=== PATIENT | male | born 1990 | race Caucasian/White ===

== ENCOUNTER 2021-03-16 02:37 | Emergency (ER) | payer MEDICAID, SELFPAY ==
[2021-03-16 02:37] VITALS: BP 134/62; PULSE 110; RESP 18; TEMP 36.4; O2SAT 98; BMI 30.9
--- NOTE | 2021-03-16 02:52 | EX.ED.DYSGE1 ---
HPI History of Present Illness Chief Complaint: Cellulitis Informant: patient Narrative Narrative: 30-year-old male presents with a left finger infection. 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 He went to urgent care through [facility] today and was prescribed Keflex 500 mg 4 times a day for 7 days. He states that he feels throbbing and pain in the finger. He states that the swelling seems worse than it was earlier today. He notes that he has had these types of infections before that he has been able to treat himself. He works on a lot of farms. He does note that they did do an x-ray at urgent care and did not see any foreign body or osseous infection. Tetanus up-to-date PFSH PFSH Medical History no medical history Home Medications oxycodone-acetaminophen 1 tab PO Q6H PRN PRN 3 Days #12 tablet 03/16/21 [Rx Last Taken Unknown] sulfamethoxazole-trimethoprim 1 tab PO BID #14 tablet 03/16/21 [Rx Last Taken Unknown] Family History no significant family his Surgical History no surgical history Social History (Updated 03/16/21 @ 02:[address] Solomon Cole, DO) current gender identity: male Smoking Status: Current every day smoker tobacco type: cigarettes ROS ROS ED Constitutional Constitutional ED: Denies chills or weight loss Eyes Eyes: Denies change in vision or diplopia ENT ENT ED: Denies ear pain, rhinorrhea or sore throat Cardiovascular Cardiovascular: Denies chest pain, orthopnea, palpitations or racing heartbeat Respiratory/Chest Respiratory/Chest: Denies cough, dyspnea or orthopnea Gastrointestinal Gastrointestinal: Denies abdominal pain, diarrhea, nausea or vomiting Genitourinary Genitourinary ED: Denies dysuria, hematuria or urinary frequency Musculoskeletal Musculoskeletal: Reports other Details: See history of present illness ; Denies arthralgias or myalgias Integumentary Reports rash; Denies abscess Neurologic Neurologic: Denies headache(s) or weakness Psychiatric Psychiatric: Denies anxiety, depression, suicidal ideation or suicidal thoughts Endocrine Endocrinology: Denies polydipsia, polyphagia or polyuria Allergic/Immunologic Allergic/Immunologic ED: Denies mouth swelling, tongue swelling or urticaria EXAM Physical Exam Const Vital Signs: 03/16/21 02:37 Temperature 97.5 F L Temperature Source Temporal Pulse Rate 110 H Respiratory Rate 18 Blood Pressure 134/62 H Blood Pressure Mean 86 Pulse Ox 98 Positive well nourished and well developed General Appearance ED: well developed HEENT Reports normocephalic, head/scalp atraumatic, TM's clear and moist mucous membranes Negative for trauma Tympanic Membrane ED: Yes TM's clear Eyes PERRL and EOMs intact bilaterally Neck no lymphadenopathy, supple and no JVD Resp normal respiratory effort and clear to auscultation bilaterally Cardio regular rate, regular rhythm and no murmurs GI normal to inspection, nondistended, normoactive bowel sounds and non-tender Palpation: soft Back/Spine no CVA tenderness and normal ROM Extremity Extremity Narrative: Medial aspect of the left middle finger demonstrates an area of swelling and erythema and skin hypertrophy with serosanguineous drainage. There does not appear to be any lymphangitic streaking. He is able to flex and extend. There is no evidence of a felon. No crepitance or fluctuance noted General Extremety ED: Negative for edema General Extremity: Negative for edema Neuro oriented x3 and CN's II-XII intact bilaterally Sensorium / Orientation: alert Motor Exam: strength 5/5 throughout Psych mental status grossly normal Mood & Affect: Negative for depressed or tearful Skin skin turgor normal General Skin Exam: elasticity normal MDM MDM MDM Narrative Medical decision making narrative: Patient received pain medication I will also add in Bactrim to his Keflex. Wound care discussed with patient. Return if worsening or concerns Discharge Plan Triage Chief Complaint: Cellulitis ED Provider: Solomon Cole Dx/Rx/DC Orders Clinical Impression: Cellulitis of finger of left hand Instructions: ED Cellulitis Prescriptions: New sulfamethoxazole-trimethoprim [sulfamethoxazole-trimethoprim] 1 TABLET tablet 1 tab PO BID Qty: 14 RF: 0 oxycodone-acetaminophen [oxycodone-acetaminophen] 1 TABLET tablet 1 tab PO Q6H PRN PRN (Reason: Pain) 3 Days Qty: 12 RF: 0 Primary Care Provider: Care Physician,No Primary Referrals: Harjinder Montes MD [NON-STAFF] - Amira Lackey MD [STAFF PHYSICIAN] - 1 Week if not improving Disposition Disposition: Home, Self Care
[2021-03-16] MEDS: oxyCODONE 5 MG Tablet 10 MG PO (03:00)
[2021-03-16] MEDS: Smz/Tmp Ds Tablet 1 TABLET PO (03:00)
== END 2021-03-16 03:03 | disposition home or self-care (01) ==
LOC: ED 02:58
PROVIDERS: Emergency Provider Emergency Medicine
DX: L03.012 Cellulitis of left finger (principal); F17.210 Nicotine dependence, cigarettes, uncomplicated
CPT/HCPCS: 99283

== ENCOUNTER 2021-08-29 10:51 | Emergency (ER) | payer MEDICAID, SELFPAY ==
[2021-08-29 10:53] VITALS: BP 143/85; PULSE 103; RESP 17; TEMP 37.2; O2SAT 100; BMI 34.6
--- NOTE | 2021-08-29 11:34 | EDS_ITS ---
HPI History of Present Illness Chief Complaint: Nausea/Vomiting Informant: patient Onset/Context/Timing Onset: Days (3) Context: Sudden Onset Timing: Continuous Quality: Aching Location: Head Worsened by: Light Relieved by: Ibuprofen Narrative Narrative: Patient presents with nausea, vomiting, diarrhea for the past 3 days. Patient also admits to a headache. Patient states that his headache is diffuse across his head. Patient states it is worse with light. Patient states it is better with ibuprofen. Patient states symptoms have been constant for the past 3 days. Patient took a home COVID test today which was positive. Patient admits to a fever of 102 and some sweats. Patient also admits to some blurry vision and sore throat. [facility] Medical History (Updated 08/29/21 @ 15:[address] Alejandro Morgan DO) Substance abuse Substance abuse Medical History no medical history no medical history Home Medications buprenorphine-naloxone 1 ea SUBLINGUAL TID 08/29/21 [History Last Taken Unknown] Allergy/AdvReac Type Severity Reaction Status Date / Time No Known Allergies Allergy Verified 08/29/21 10:52 Surgical History no surgical history no surgical history Social History Smoking Status: Current some day smoker tobacco type: cigarettes ROS ROS ED Constitutional Constitutional ED: Reports fever(s) and sweats; Denies chills Eyes Eyes: Reports blurry vision; Denies diplopia ENT ENT ED: Reports sore throat; Denies rhinorrhea Cardiovascular Cardiovascular: Denies chest pain or palpitations Respiratory/Chest Respiratory/Chest: Denies cough or dyspnea Gastrointestinal Gastrointestinal: Reports diarrhea, nausea and vomiting Genitourinary Genitourinary ED: Denies dysuria or hematuria Musculoskeletal Musculoskeletal: Denies back pain or neck pain Integumentary Denies abscess or rash Neurologic Neurologic: Reports headache(s); Denies weakness Allergic/Immunologic Allergic/Immunologic ED: Denies mouth swelling or urticaria EXAM Physical Exam Const Vital Signs: 08/29/21 10:53 08/29/21 12:46 08/29/21 13:18 Temperature 98.9 F 98.1 F Temperature Source Temporal Oral Pulse Rate 103 H 77 81 Respiratory Rate 17 12 12 Blood Pressure 143/85 H 118/79 118/79 Blood Pressure Mean 104 92 92 Pulse Ox 100 100 98 Oxygen Delivery Method Room Air Room Air Room Air 08/29/21 16:00 Temperature Temperature Source Pulse Rate 82 Respiratory Rate 17 Blood Pressure 128/74 H Blood Pressure Mean Pulse Ox 99 Oxygen Delivery Method Positive well nourished and well developed General Appearance ED: well developed and NAD HEENT Reports moist mucous membranes Neck supple and no JVD Resp normal respiratory effort and clear to auscultation bilaterally Cardio regular rate, regular rhythm and no murmurs GI normal to inspection, nondistended, normoactive bowel sounds and non-tender Palpation: soft Extremity normal to inspection General Extremety ED: Negative for edema or tenderness General Extremity: Negative for edema Neuro oriented x3, CN's II-XII intact bilaterally and no sensory deficits noted Sensorium / Orientation: alert Motor Exam: strength 5/5 throughout Psych mental status grossly normal Skin no rashes or lesions noted MDM MDM MDM Narrative Medical decision making narrative: Patient was given IV fluids here. CBC was within normal limits. Comprehensive metabolic profile showed an elevated creatinine of 1.82. There are no prior labs available for comparison. Patient denies any history of kidney injury. Portable 1 view chest x-ray was obtained. On my interpretation, lung barrera are clear. There is normal cardiac silhouette. Bony thorax is normal. There is no acute process noted. Radiologist also interpreted the x-ray and agrees. Patient was given a repeat fluid bolus of normal saline. Case was discussed with the hospitalist. Since the patient tested positive for COVID-19 at home, he does not want to admit the patient to the hospital for just IV fluids. He recommended giving the patient 2 more liters of fluids in the emergency department and having the patient follow- up with a primary care physician in 3 to 5 days. Patient was ordered a repeat bolus of normal saline but the patient refused this. Patient states he feels better and he wants to go home. Patient was given a referral for primary care physician follow-up. Patient understood and was agreeable with the plan. All questions were answered. Lab Data Attestation: I reviewed the patient's lab results. Labs: Laboratory Results - last 24 hr 08/29/21 08/29/21 11:30 11:30 WBC 6.0 RBC 4.39 L Hgb 13.0 Hct 38.3 L MCV 87.2 MCH 29.6 MCHC 33.9 RDW Std Deviation 38.5 RDW Coeff of Asa 11.9 Plt Count 205 MPV 11.1 Immature Gran % (Auto) 0.500 Neut % (Auto) 66.8 Lymph % (Auto) 22.9 [place] % (Auto) 7.5 Eos % (Auto) 1.5 Baso % (Auto) 0.8 Absolute Neuts (auto) 4.0 Absolute Lymphs (auto) 1.38 Nucleated RBC % 0 Sodium 136 Potassium 3.9 Chloride 103 Carbon Dioxide 28.0 Anion Gap 5 BUN 11 Creatinine 1.82 H Estim Creat Clear Calc 60.16 Est GFR (MDRD) Af Amer 56 L Est GFR (MDRD) Non-Af 46 L BUN/Creatinine Ratio 6.0 L Glucose 114 H Calcium 8.6 Total Bilirubin 0.20 AST 13 L ALT 21 Alkaline Phosphatase 53 Total Protein 6.8 Albumin 3.5 Globulin 3.3 Albumin/Globulin Ratio 1.1 Radiography Chest X-Ray - ED: 1 View, Read by ED Physician, Read by Radiologist and No Acute Disease Diagnostic Testing: Clinical Impression(s) from Imaging Studies Chest X-Ray 08/29/21 12:10 IMPRESSION: Normal x-ray examination of the chest. Electronically Signed: Howard Peralta MD at 12:34 EDT , Discharge Plan Triage Chief Complaint: Nausea/Vomiting ED Provider: Alejandro Morgan Dx/Rx/DC Orders Clinical Impression: Dehydration, COVID-19 Instructions: Coronavirus Disease 2019 (COVID-19): Caring for Yourself or Others, ED Dehydration (Adult) Prescriptions: No Action buprenorphine-naloxone 8-2 mg film 1 ea sublingual TID RF: 0 Primary Care Provider: Care Physician,No Primary Referrals: Irvin Gilliland MD [NON-STAFF] - 3-5 Days Care Physician,No Primary [Primary Care Provider] - Disposition Disposition: Home, Self Care Discharge Date/Time: 08/29/21 16:02
[2021-08-29] MEDS: 0.9% Normal Saline 1,000 ML 1000 ML IV ×2 (11:50→13:15)
[2021-08-29] MEDS: Metoclopramide 10 MG/2 ML Vial IV (11:53)
[2021-08-29] MEDS: DiphenhydrAMINE 50 MG/ML Syringe 25 MG IV (11:53)
[2021-08-29 11:58] LABS: Absolute Lymphocyte Count 1.38 X10^3/uL (0.83-4.51); Basophil# 0.05 X10^3/uL; Basophil% 0.8 % (0-1); Eosinophil# 0.09 X10^3/uL; Eosinophils% 1.5 % (0-5); Hematocrit 38.3 % (40-54); Lymphocyte # 1.38 X10^3/ul (0.83-4.51); Lymphocyte % 22.9 % (19-41); Mean Corp Hgb Conc 33.9 g/dL (32-36); Mean Corpuscular Hgb 29.6 pg (27.0-32.0); Mean Corpuscular Volume 87.2 fL (80-94); Mean Platelet Vol. 11.1 fl (6.2-12.0); Monocyte# 0.45 X10^3/uL; Monocyte% 7.5 % (0-10); NRBC Flagged by Analyzer 0 % (0-5); Neutrophil # 4.02 X10^3/uL (2.7-7.7); Neutrophil % 66.8 % (47-70); Platelet Count 205 K/mm3 (150-450); RBC Distribution Width CV 11.9 % (11.6-14.6); RBC Distribution Width SD 38.5 fl (35.1-43.9); Red Blood Count 4.39 M/mm3 (4.6-6.2)
--- NOTE | 2021-08-29 12:10 | RAD_ITS ---
STUDY: X-RAY CHEST REASON FOR EXAM: Male, 31 years old. COVID . Weakness and headaches. TECHNIQUE: Single AP portable view of the chest. COMPARISON: None. FINDINGS: EKG electrodes are seen. The lungs are clear and expanded. There is no demonstrated pleural abnormality. Normal size heart. Normal mediastinum and karina. Normal visualized pulmonary arteries. Normal visualized aortic arch and descending thoracic aorta. Normal visualized thoracic spine. Normal visualized ribs, clavicles, and shoulders. There is no demonstrated abnormality of the visualized soft tissue structures of the upper abdomen. RAD/Chest 1 View (Portable) IMPRESSION: Normal x-ray examination of the chest. Electronically Signed: Howard Peralta MD at 12:34 EDT ,
[2021-08-29 12:15] LABS: ALB/GLOB Ratio 1.1 RATIO (0.9-2.4); AST(SGOT) 13 U/L (15-37); Alanine Aminotransfer ALT/SGPT 21 U/L (16-61); Albumin, Serum 3.5 g/dL (3.2-5.0); Alkaline Phosphatase 53 U/L (45-117); Anion Gap 5 (5-15); BUN 11 mg/dL (7-18); Calcium,Total 8.6 mg/dL (8.5-10.1); Chloride 103 mmol/L (98-107); Creatinine, Serum 1.82 mg/dL (0.70-1.30); EST Glomerular Filtration Rate 46 mL/min (>60); Est Glom Filt Rate - Afr Amer 56 mL/min (>60); Estimated Creatinine Clearance 60.16 ml/min; Globulin 3.3 g/dL (2.2-4.2); Glucose 114 mg/dL (74-106); Potassium 3.9 mmol/L (3.5-5.1); Protein, Total 6.8 g/dL (6.4-8.2); Sodium Level 136 mmol/L (136-145)
[2021-08-29 12:46] VITALS: BP 118/79; PULSE 77; RESP 12; TEMP 36.7; O2SAT 100
[2021-08-29 13:18] VITALS: BP 118/79; PULSE 81; RESP 12; O2SAT 98
--- NOTE | 2021-08-29 13:21 | ED.RN ---
pt wanted to take his suboxone 8 mg, he notes he has not had any today. asked Dr. Morgan and he gave verbal that pt could take it. pt took home suboxone.
[2021-08-29 16:00] VITALS: BP 128/74; PULSE 82; RESP 17; O2SAT 99
== END 2021-08-29 16:02 | disposition home or self-care (01) ==
PROVIDERS: Emergency Provider Emergency Medicine; Visit Provider Emergency Medicine
DX: U07.1 COVID-19 (principal); E86.0 Dehydration; F17.210 Nicotine dependence, cigarettes, uncomplicated
CPT/HCPCS: 71045; 80053; 85025; 96361; 96374; 96375; 99282; J7030; A4216